=== PATIENT | male | born 1945 | race Caucasian/White ===

== ENCOUNTER 2021-01-01 12:35 | Observation (INO) | payer OTHER ==
[2021-01-01 14:57] LABS: Absolute Lymphocytes (CBC) 1.9 K/uL (0.7-4.9); Basophils % 0.5 % (0-1.3); Hematocrit 45.7 % (39.6-49.0); Lymphocytes % 12.1 % (15.3-44.8); MPV 7.8 fL (7.6-11.3); RBC Red Blood Cell Count 5.02 M/uL (4.33-5.43)
[2021-01-01 15:22] LABS: Protime INR 1.06
[2021-01-01 15:25] LABS: ALT/SGPT 27 U/L (12-78); AST/SGOT 18 U/L (15-37); Albumin 3.7 g/dL (3.4-5.0); Alkaline Phosphatase 82 U/L (45-117); BUN Blood Urea Nitrogen 12 mg/dL (7-18); Bicarbonate 30 mmol/L (21-32); Bilirubin Direct 0.3 mg/dL (0-0.2); Bilirubin Total 0.9 mg/dL (0.2-1.0); Glucose Level 94 mg/dL (74-106); NT PRO-BNP 471 pg/mL (<125); Potassium 3.2 mmol/L (3.5-5.1); Protein, Total 8.3 g/dL (6.4-8.2); Sodium Level 136 mmol/L (136-145); Troponin (Emerg Dept Use Only) < 0.02 ng/mL (0.0-0.045)
--- NOTE | 2021-01-01 15:56 | RAD REPORT ---
EXAM DESCRIPTION: RAD - Chest Single View - 01/01/2021 3:06 pm CLINICAL HISTORY: CHEST PAIN Chest pain. COMPARISON: No comparisons FINDINGS: Portable technique limits examination quality. Minimal interstitial pulmonary edema. The heart is moderately enlarged in size. No displaced fracture s. IMPRESSION: Mild CHF.
--- NOTE | 2021-01-01 16:20 | P.HP ---
Certification for Inpatient Patient will require the following post-hospital care: None Practitioner: I am a practitioner with admitting privileges, knowledge of patient current condition, hospital course, and medical plan of care. Services: Services provided to patient in accordance with Admission requirements found in Title 42 Section 412.3 of the Code of Federal Regulations Patient History Date of Service: 01/01/21 Reason for admission: Chest pain. History of Present Illness: 75 y o male pt with no significant medical hx who came to the ED for evaluation of chest pain. he reported feeling chest pain that has been recurrent but got worse today. he rated pain 10/10 in intensity. No radiation into the jaw or the left arm. His last episode occurred after eating food. he was worked up in the Ed for ACS. His EKG and troponin were normal initially. He does have a significant family hx of heart disease as his father at age 54 from cardiac disease.He was asked to be admitted for chest pain work up. No hx of fever, chills, rigor, N/v or dizziness reported. Review of Systems General: Unremarkable Eyes: Unremarkable Respiratory: Shortness of Breath Cardiovascular: Chest Pain, Unremarkable Gastrointestinal: Unremarkable Genitourinary: Unremarkable Musculoskeletal: Unremarkable Integumentary: Unremarkable Neurological: Unremarkable Physical Examination - Physical Exam General: Alert, Oriented x3, Cooperative HEENT: Atraumatic, Normocephalic Neck: Supple Respiratory: Clear to auscultation bilaterally Cardiovascular: Regular rate/rhythm, Normal S1 S2 Gastrointestinal: Soft and benign Musculoskeletal: No swelling Neurological: Normal speech, Normal strength at 5/5 x4 extr, Cranial nerves 3-12 intact - Studies Laboratory Data (last 24 hrs) 01/01/21 14:43: PT 12.2, INR 1.06 01/01/21 14:43: WBC 15.50 H, Hgb 15.1, Hct 45.7, Plt Count 294 01/01/21 14:43: Sodium 136, Potassium 3.2 L, BUN 12, Creatinine 0.98, Glucose 94, Magnesium 2.0, Total Bilirubin 0.9, AST 18, ALT 27, Alkaline Phosphatase 82 Assessment and Plan - Plan 1. Chest pain- deemed due to ACS. aspirin therapy to be continued. we will start ACS protocol and trend cardiac markers. we will obtain echocardiogram to evaluate. we will also check lipid panel and HbA1c. 2. Obesity-we will encourage weight loss. 3.Hypokalemia-we will replete as his potassium is 3.2. we will repeat labs in am. - Advance Directives Does patient have a Living Will: No Does patient have a Durable POA for Healthcare: No
--- NOTE | 2021-01-01 16:23 | EDPHYS ---
Physician Documentation [facility] Name: Gege Edwards Age: 75 yrs Sex: Male : 1945 Arrival Date: 01/01/2021 Time: 12:39 Bed 7 Private MD: ED Physician Calvin Mistry HPI: 01/01 14:37 This 75 yrs old Male presents to ER via Ambulatory with complaints of Chest jmm Pain. 14:37 The patient or guardian reports chest pain that is located primarily in the substernal m area. Onset: gradually, 5 pm last night. The pain does not radiate. Associated signs and symptoms: Pertinent negatives:. The chest pain is described as aching, a heaviness, a pressure. Duration: The patient or guardian reports multiple episodes, that are intermittent. Modifying factors: The symptoms are alleviated by nothing. the symptoms are aggravated by nothing. The patient has not experienced similar symptoms in the past. Historical: - Allergies: 13:19 Sulfa (Sulfonamide Antibiotics); iw - Home Meds: 13:29 testosterone cypionate 200 mg/mL intramuscular oil weekly [Active]; tamsulosin 0.4 mg iw oral cp24 1 cap once daily [Active]; amlodipine 10 mg tab 1 tab once daily [Active]; Fish Oil oral oral daily [Active]; B-Complex oral tab daily [Active]; magnesium citrate oral oral daily [Active]; Vitamin D Oral 1,000 unit daily [Active]; - PMHx: 13:19 Hypertension; enlarged prostate; iw - PSHx: 13:19 Knee surgery; iw - Immunization history:: Client reports receiving the 2nd dose of the Covid vaccine, Flu vaccine status is unknown. - Social history:: Smoking status: Patient denies any tobacco usage or history of. ROS: 14:37 Constitutional: Negative for fever, chills, and weight loss. jmm 14:37 Cardiovascular: Positive for chest pain. 14:37 Abdomen/GI: Positive for vomiting, diarrhea. 14:37 All other systems are negative. Exam: 14:37 Constitutional: This is a well developed, well nourished patient who is awake, alert, jmm and in no acute distress. Head/Face: atraumatic. Eyes: EOMI, no conjunctival erythema appreciated ENT: Moist Mucus Membranes Neck: Trachea midline, Supple Chest/axilla: Normal chest wall appearance and motion. 14:37 Cardiovascular: Regular rate and rhythm. No edema appreciated Respiratory: Normal respirations, no respiratory distress appreciated Abdomen/GI: Non distended, soft Back: Normal ROM Skin: General appearance color normal MS/ Extremity: Moves all extremities, no obvious deformities appreciated, no edema noted to the lower extremities Neuro: Awake and alert, normal gait Psych: Behavior is normal, Mood is normal, Patient is cooperative and pleasant Vital Signs: 13:15 BP 158 / 90; Pulse 87; Resp 16; Temp 98.4; Pulse Ox 98% on R/A; Weight 158.76 kg; iw Height 6 ft. 0 in. (182.88 cm); Pain 3/10; 14:34 BP 144 / 85 RA (auto/lg); Pulse 86; Resp 36 S; Pulse Ox 97% on R/A; Pain 3/10; jp3 15:12 BP 162 / 96; Pulse 83; Resp 19; Pulse Ox 97% on R/A; ap3 13:15 Body Mass Index 47.47 (158.76 kg, 182.88 cm) iw MDM: 14:34 Patient medically screened. [facility] 16:21 The patient was given aspirin in the Emergency Department. Data reviewed: vital signs, [facility] nurses notes, lab test result(s), EKG, radiologic studies, plain films. ED course: I discussed the patient with Dr. Triana whom accepted the patient for admission. . 01/01 14:37 Order name: Basic Metabolic Panel [facility] 01/01 14:37 Order name: CBC with Diff [facility] 01/01 14:37 Order name: LFT's [facility] 01/01 14:37 Order name: Magnesium [facility] 01/01 14:37 Order name: NT PRO-BNP [facility] 01/01 14:37 Order name: PT-INR [facility] 01/01 14:37 Order name: Troponin (emerg Dept Use Only) [facility] 01/01 14:38 Order name: Basic Metabolic Panel; Complete Time: 15:25 [facility] 01/01 14:38 Order name: CBC with Automated Diff; Complete Time: 15:02 [facility] 01/01 14:38 Order name: Liver (Hepatic) Function; Complete Time: 15:26 [facility] 01/01 14:38 Order name: Magnesium; Complete Time: 15:26 [facility] 01/01 14:38 Order name: NT PRO-BNP; Complete Time: 15:26 [facility] 01/01 14:38 Order name: Protime (+INR); Complete Time: 15:25 [facility] 01/01 14:38 Order name: Troponin (Emerg Dept Use Only); Complete Time: 15:26 [facility] 01/01 16:49 Order name: CKMB Creatine Kinase MB [facility] 01/01 16:49 Order name: Creatine Phosphokinase [facility] 01/01 16:49 Order name: Troponin I [facility] 01/01 16:58 Order name: Hemoglobin A1c; Complete Time: 17:48 [facility] 01/01 17:24 Order name: COVID-19 : Document "Date of Symptom Onset" if Symptomatic. 01/01 19:03 Order name: Creatine Phosphokinase; Complete Time: 19:16 [facility] 01/01 19:03 Order name: CKMB Creatine Kinase MB; Complete Time: 19:16 [facility] 01/01 19:07 Order name: CORONAVIRUS [facility] 01/01 19:49 Order name: SARS-COV-2 RT PCR; Complete Time: 20:10 [facility] 01/01 22:31 Order name: Creatine Phosphokinase [facility] 01/01 22:31 Order name: CKMB Creatine Kinase MB [facility] 01/02 05:46 Order name: Creatine Phosphokinase [facility] 01/02 05:46 Order name: CKMB Creatine Kinase MB [facility] 01/02 05:46 Order name: Troponin I [facility] 01/02 05:46 Order name: Comprehensive Metabolic Panel [facility] 01/02 05:46 Order name: Phosphorus [facility] 01/01 14:37 Order name: XRAY Chest (1 view); Complete Time: 16:00 [facility] 01/01 14:37 Order name: EKG; Complete Time: 14:38 [facility] 01/01 14:37 Order name: Cardiac monitoring; Complete Time: 14:47 [facility] 01/01 14:37 Order name: EKG - Nurse/Tech; Complete Time: 14:47 [facility] 01/01 14:37 Order name: IV Saline Lock; Complete Time: 14:47 [facility] 01/01 14:37 Order name: Labs collected and sent; Complete Time: 14:47 [facility] 01/01 14:37 Order name: O2 Per Protocol; Complete Time: 14:47 [facility] 01/01 14:37 Order name: O2 Sat Monitoring; Complete Time: 14:47 [facility] 01/01 16:49 Order name: CONS Physician Consult [facility] 01/01 16:49 Order name: Heart Healthy [facility] 01/01 16:49 Order name: EKG Electrocardiogram [facility] 01/01 16:49 Order name: EKG Electrocardiogram [facility] 01/01 16:51 Order name: Echo without Doppler (2D) [facility] 01/01 17:12 Order name: Diet Heart Healthy; Complete Time: 17:13 ss 01/02 05:46 Order name: Lipid Profile [facility] Administered Medications: 16:49 Drug: Aspirin Chewable Tablet 324 mg Route: PO; ap3 Disposition: 01/02 09:38 Co-signature as Attending Physician, Calvin Mistry MD. rn Disposition: 01/01/21 16:22 Hospitalization ordered by Tobi Flores for Observation. Preliminary diagnosis is Chest pain, unspecified. - Bed requested for [facility] ER HOLD. - Status is Observation. tr6 - Condition is Stable. - Problem is new. - Symptoms are unchanged. Signatures: Dispatcher [employer] [facility] Axel Anderson PA PA Lydia Vargas, RN KYLEE iw Calvin Mistry MD MD rn Prokisch, Amanda, RN RN ap3 Ayah Conner, RN RN tr6 Corrections: (The following items were deleted from the chart) 01/01 18:45 16:22 Hospitalization Ordered by Tobi Flores MD for Observation. Preliminary ap3 diagnosis is Chest pain, unspecified. Bed requested for Telemetry/MedSurg (observation). Status is Observation. Condition is Stable. Problem is new. Symptoms are unchanged. [facility] 01/02 09:06 01/01 18:45 01/01/2021 16:22 Hospitalization Ordered by Tobi Flores MD for tr6 Observation. Preliminary diagnosis is Chest pain, unspecified. Bed requested for [facility] ER HOLD. Status is Observation. Condition is Stable. Problem is new. Symptoms are unchanged. ap3
--- NOTE | 2021-01-01 16:23 | ER ---
Nurse's Notes [facility] Name: Gege Edwards Age: 75 yrs Sex: Male : 1945 Arrival Date: 01/01/2021 Time: 12:39 Bed 7 Private MD: Diagnosis: Chest pain, unspecified Presentation: 01/01 13:15 Chief complaint: Patient states: yesterday afternoon had a lot of indigestion after he iw ate at a restaurant , was vomiting and had diarrhea last night , then today he noticed he was having a lot of urine output, has a tightness in his chest, feels lethargic, no energy , no vomiting since 2 am. Coronavirus screen: diarrhea, difficulty breathing, fatigue, shortness of breath, vomiting. Client presents with at least one sign or symptom that may indicate coronavirus-19. Ebola Screen: Patient negative for fever greater than or equal to 101.5 degrees Fahrenheit, and additional compatible Ebola Virus Disease symptoms Patient denies exposure to infectious person. Patient denies travel to an Ebola-affected area in the 21 days before illness onset. No symptoms or risks identified at this time. Initial Sepsis Screen: Does the patient meet any 2 criteria? No. Patient's initial sepsis screen is negative. Does the patient have a suspected source of infection? No. Patient's initial sepsis screen is negative. Risk Assessment: Do you want to hurt yourself or someone else? Patient reports no desire to harm self or others. Onset of symptoms was December 31, 2020. 13:15 Method Of Arrival: Ambulatory iw 13:15 Acuity: ARCHIE 2 iw Historical: - Allergies: 13:19 Sulfa (Sulfonamide Antibiotics); iw - Home Meds: 13:29 testosterone cypionate 200 mg/mL intramuscular oil weekly [Active]; tamsulosin 0.4 mg iw oral cp24 1 cap once daily [Active]; amlodipine 10 mg tab 1 tab once daily [Active]; Fish Oil oral oral daily [Active]; B-Complex oral tab daily [Active]; magnesium citrate oral oral daily [Active]; Vitamin D Oral 1,000 unit daily [Active]; - PMHx: 13:19 Hypertension; enlarged prostate; iw - PSHx: 13:19 Knee surgery; iw - Immunization history:: Client reports receiving the 2nd dose of the Covid vaccine, Flu vaccine status is unknown. - Social history:: Smoking status: Patient denies any tobacco usage or history of. Screenin:05 Abuse screen: Denies threats or abuse. Nutritional screening: No deficits noted. ap3 Tuberculosis screening: No symptoms or risk factors identified. Fall Risk None identified. Assessment: 14:57 Also complains of shortness of breath. General: Appears uncomfortable, Behavior is ap3 calm, cooperative, appropriate for age. Pain: Complains of pain in diaphragm Pain does not radiate. Pain began patient states the pain began 12/31/2020 in the morning Alleviated by rest, Also complains of shortness of breath. Neuro: Level of Consciousness is awake, alert, obeys commands, Oriented to person, place, time, situation. Cardiovascular: Reports chest pain, shortness of breath, Patient's skin is warm and dry. Respiratory: Airway is patent Respiratory effort is even, unlabored, Respiratory pattern is regular, symmetrical, breath sounds are clear to auscultation in the bilateral upper lobes, and diminished in the bilateral lower lobes. GI: Abdomen is round Reports his last BM to be yesterday 12/31/20 and patient states that the BM was normal for him. Vital Signs: 13:15 BP 158 / 90; Pulse 87; Resp 16; Temp 98.4; Pulse Ox 98% on R/A; Weight 158.76 kg; iw Height 6 ft. 0 in. (182.88 cm); Pain 3/10; 14:34 BP 144 / 85 RA (auto/lg); Pulse 86; Resp 36 S; Pulse Ox 97% on R/A; Pain 3/10; jp3 15:12 BP 162 / 96; Pulse 83; Resp 19; Pulse Ox 97% on R/A; ap3 13:15 Body Mass Index 47.47 (158.76 kg, 182.88 cm) iw ED Course: 12:39 Patient arrived in ED. mr 13:18 Triage completed. iw 13:19 Arm band placed on. iw 13:24 EKG done, by ED staff, reviewed by Calvin Mistry MD. jp3 14:29 Axel Anderson PA is PHCP. [facility] 14:29 Calvin Mistry MD is Attending Physician. jmm 14:30 Placed in gown. Bed in low position. Call light in reach. Verbal reassurance given. jp3 front desk monitor on. Pulse ox on. NIBP on. 14:43 Initial lab(s) drawn, by nj, sent to lab. Inserted saline lock: 20 gauge in right jp3 antecubital area, using aseptic technique. Blood collected. 14:47 Shweta Cuevas, RN is Primary Nurse. ap3 14:47 Patient maintains SpO2 saturation greater than 95% on room air. jp3 14:56 X-ray(s) taken. ap3 15:06 XRAY Chest (1 view) In Process Unspecified. EDMS 15:49 Basic Metabolic Panel Sent. sv 15:49 CBC with Diff Sent. sv 15:49 LFT's Sent. sv 15:49 Magnesium Sent. sv 15:49 NT PRO-BNP Sent. sv 15:49 PT-INR Sent. sv 15:49 Troponin (emerg Dept Use Only) Sent. sv 16:22 Tobi Flores MD is Hospitalizing Provider. [facility] 19:15 No provider procedures requiring assistance completed. Patient admitted, IV remains in place. 19:25 Primary Nurse role handed off by Shweta Cuevas, KYLEE 2 01/02 07:13 Lety Cintron, RN is Primary Nurse. tw2 Administered Medications: 04 16:49 Drug: Aspirin Chewable Tablet 324 mg Route: PO; ap3 Outcome: 16:22 Decision to Hospitalize by Provider. [facility] 19:15 Admitted to ER Hold. Please see [facility] for further documentation. 19:15 Condition: stable 19:15 Instructed on the need for admit. 01/02 09:06 Patient left the ED. tr6 Signatures: Dispatcher [employer] EDMA Becca Estrada, RN Axel Vidal PA PA [facility] Beata Jaime Irene, RN KYLEE Lety Cintron RN RN tw2 Lobo Rajput RN RN Shweta Cuevas, KYLEE thompson3 Clement Miguel 2 Faizan Whitehead 3 Ayah Conner RN RN tr6
[2021-01-01] MEDS ORDERED: ONDANSETRON 4 MG/2 ML VIAL IV PRN (16:44)
[2021-01-01] MEDS ORDERED: MAGNESIUM HYDROXIDE 8% 30 ML PO PRN (16:44)
[2021-01-01] MEDS ORDERED: ACETAMINOPHEN 500 MG TAB PO PRN (16:44)
[2021-01-01] MEDS ORDERED: MORPHINE 2 MG/ML SYR IV PRN (16:49)
[2021-01-01] MEDS ORDERED: ASPIRIN 81 MG CHEWABLE TABLET ONE (17:04)
[2021-01-01] MEDS ORDERED: POTASSIUM 25 MEQ EFFERV TAB PO ONE (17:45)
[2021-01-01 18:17] VITALS: BMI 47.4
[2021-01-01 21:43] VITALS: O2SAT 98
[2021-01-01 22:30] LABS: CKMB Creatine Kinase MB 2.9 ng/mL (0.3-3.6); Creatine Phosphokinase 317 U/L (39-308); Troponin I < 0.02 ng/mL (0.0-0.045)
[2021-01-02 05:17] LABS: Albumin 3.1 g/dL (3.4-5.0); Creatine Phosphokinase 306 U/L (39-308); Potassium 3.4 mmol/L (3.5-5.1)
[2021-01-02 05:18] LABS: CKMB Creatine Kinase MB 2.3 ng/mL (0.3-3.6)
[2021-01-02 05:19] LABS: Phosphorus 2.1 mg/dL (2.5-4.9); Troponin I < 0.02 ng/mL (0.0-0.045)
[2021-01-02 05:45] LABS: Bilirubin Total 0.9 mg/dL (0.2-1.0)
[2021-01-02 05:47] VITALS: TEMP 97.9
[2021-01-02] MEDS ORDERED: ASPIRIN EC 81 MG TAB PO ONE (08:03)
[2021-01-02] MEDS ORDERED: POTASSIUM CL SA 10 MEQ TAB PO ONE ×2 (08:04→09:00)
[2021-01-02 08:52] VITALS: BP 142/67
[2021-01-02] MEDS ORDERED: ENOXAPARIN 40 MG/0.4 ML SQ SCH (09:00)
[2021-01-02] MEDS ORDERED: ASPIRIN EC 81 MG TAB PO SCH (09:00)
--- NOTE | 2021-01-02 16:11 | EKG ---
Test Date: 2021-01-01 Test Time: 13:24:26 Director Export: TOMI MEASUREMENT RESULTS: Intervals: Rate: 87 CT: 162 QRSD: 92 QT: 352 QTc: 423 [place]: P: -23 CT: 162 QRS: -35 T: 24 INTERPRETIVE STATEMENTS: Sinus rhythm with premature atrial complexes Left axis deviation Anterolateral infarct, age undetermined Abnormal ECG No previous ECG available for comparison Electronically Signed On 01-02-21 16:07:15 CDT by Mike Sánchez
--- NOTE | 2021-01-03 13:07 | CON ---
Date of Consultation: 01/02/2021 Reason For Consultation: Chest pain. History Of Present Illness: Mr. Edwards is a 75-year-old white male, who came in with what he thought w as food poisoning. His symptoms were mid-epigastric, nausea, vomiting. No diaphoresis. No PND, ort hopnea, pedal edema, palpitations, or syncope. Denied any fever or chills or cough. Symptoms have g one away by the time I saw him. He has already had a negative cardiac workup. Past Medical History: Otherwise unremarkable. Allergies: NONE. Medications: At home are listed by primary care physician. Review of Systems: Negative. Social History: Negative. Family History: Noncontributory. Physical Examination: Vital Signs: Stable, afebrile. HEENT: Negative. Neck: Supple with no bruit. Chest: Clear. Cardiac: Revealed a regular rhythm and rate. No murmurs, gallops, or rubs. Abdomen: Benign. Extremities: Revealed no clubbing, cyanosis, or edema. Diagnostic Data: All within normal limit. Impression And Plan: Chest pain secondary to gastroesophageal reflux disease. I think the patient c an go home on proton pump inhibitors, continue the rest of his medications. All his other medical pr oblems are stable at this point. I would like him to have an appointment in my office in the next 2 weeks. DORA/ALLIE Voice ID: [id number] Report ID: [id number]
--- NOTE | 2021-01-21 03:21 | P.DS ---
Discharge Date: 01/02/21 Disposition: ROUTINE DISCHARGE Discharge Condition: GOOD Reason for Admission: Chest pain. Consultations: Cardiology Brief History of Present Illness: Patient is a 75 yo male pt with no significant medical hx who came to the ED for evaluation of chest pain. he reported feeling chest pain that has been recurrent but got worse today. he rated pain 10/10 in intensity. No radiation into the jaw or the left arm. His last episode occurred after eating food. he was worked up in the Ed for ACS. His EKG and troponin were normal initially. He does have a significant family hx of heart disease as his father at age 54 from cardiac disease.He was asked to be admitted for chest pain work up. No hx of fever, chills, rigor, N/v or dizziness reported. Hospital Course: Patient's workup was unremarkable. Troponins were negative x3. Echocardiogram did not reveal any abnormality. At this time, patient will need close outpatient follow with Cardiology in 1-2 weeks. Vital Signs/Physical Exam: Temp Pulse Resp BP Pulse Ox 97.9 F 89 16 142/67 H 95 01/02/21 04:00 01/02/21 08:00 01/02/21 04:00 01/02/21 08:00 01/02/21 08:00 General: Alert, In no apparent distress, Oriented x3 Laboratory Data at Discharge: WBC 15.50 K/uL (4.3-10.9) H 01/01/21 14:43 Hgb 15.1 g/dL (13.6-17.9) 01/01/21 14:43 Hct 45.7 % (39.6-49.0) 01/01/21 14:43 Plt Count 294 K/uL (152-406) 01/01/21 14:43 PT 12.2 SECONDS (9.5-12.5) 01/01/21 14:43 INR 1.06 01/01/21 14:43 Sodium 137 mmol/L (136-145) 01/02/21 04:30 Potassium 3.4 mmol/L (3.5-5.1) L 01/02/21 04:30 BUN 15 mg/dL (7-18) 01/02/21 04:30 Creatinine 0.98 mg/dL (0.55-1.3) 01/02/21 04:30 Glucose 103 mg/dL (74-106) 01/02/21 04:30 Phosphorus 2.1 mg/dL (2.5-4.9) L 01/02/21 04:30 Magnesium 2.0 mg/dL (1.8-2.4) 01/01/21 14:43 Total Bilirubin 0.9 mg/dL (0.2-1.0) 01/02/21 04:30 AST 20 U/L (15-37) 01/02/21 04:30 ALT 24 U/L (12-78) 01/02/21 04:30 Alkaline Phosphatase 70 U/L (45-117) 01/02/21 04:30 Troponin I Cancelled 01/02/21 14:00 Triglycerides 70 mg/dL (<150) 01/02/21 04:30 Cholesterol 136 mg/dL (<200) 01/02/21 04:30 HDL Cholesterol 40 mg/dL (40-60) 01/02/21 04:30 Cholesterol/HDL Ratio 3.40 01/02/21 04:30 Home Medications: Amlodipine Besylate 10 mg PO DAILY 01/01/21 Cholecalciferol (Vitamin D3) [Vitamin D3] 1,000 unit PO DAILY 01/01/21 Magnesium Citrate 125 mg PO DAILY 01/01/21 [place]-3S/Dha/Epa/Fish Oil [Fish Oil 1,200 mg Softgel] 1 each PO DAILY 01/01/21 Tamsulosin HCl 0.4 mg PO BID 01/01/21 Testosterone Cypionate [Testone Cik] 200 mg IM EVERY 7TH DAY 01/01/21 Vitamin B Complex [B Complex] 1 each PO DAILY 01/01/21 Aspirin [Aspirin EC 81 MG] 81 mg PO DAILY #30 tablet. 01/02/21 Atorvastatin Calcium [Lipitor] 40 mg PO DAILY #30 tablet 01/02/21 New Medications: Aspirin [Aspirin EC 81 MG] 81 mg PO DAILY #30 tablet. Atorvastatin Calcium [Lipitor] 40 mg PO DAILY #30 tablet Physician Discharge Instructions: OK TO DC IV AND DC HOME FOLLOW-UP WITH PRIMARY CARE PROVIDER IN 1-2 WEEKS FOLLOW-UP WITH CARDIOLOGY IN 1-2 WEEKS RETURN TO THE ER IF symptoms worsen CALL or TEXT DR. ROSA AT [phone] IF ANY QUESTIONS REGARDING HOSPITAL STAY. PLEASE CALL THE FLOOR AT [phone] IF ANY MEDICATION OR NURSING QUESTIONS. Diet: AHA Activity: Fall precautions Followup: NONE,NONE [Primary Care Provider] - Time spent managing pt's care (in minutes): 35
== END 2021-01-02 09:05 | disposition home or self-care (01) ==
LOC: ER 12:35 → ERHOLD 16:44
PROVIDERS: ADMIT Internal Medicine Nephrology; ATTEND Hospitalist
DX: K21.9 Gastro-esophageal reflux disease without esophagitis (principal); I10 Essential (primary) hypertension; Z20.822 Contact with and (suspected) exposure to COVID-19; R94.31 Abnormal electrocardiogram [ECG] [EKG]; E66.9 Obesity, unspecified; E87.6 Hypokalemia; Z68.42 Body mass index [BMI] 45.0-49.9, adult
CPT/HCPCS: 36415; 71045; 80048; 80053; 80061; 80076; 82550; 82553; 83036; 83735; 83880; 84100; 84484; 85025; 85610; 93005; 99285; G0378; U0003